=== PATIENT | male | born 1980 | race Caucasian/White ===

== ENCOUNTER 2018-10-14 17:00 | Emergency (ER) | payer OTHER ==
--- NOTE | 2018-10-14 17:14 | ED Physician Documentation ---
PD HPI ABD PAIN - Stated complaint Stated Complaint: NAUSEA/AB PX - Chief complaint Chief Complaint: Abd Pain - History obtained from History obtained from: Patient - History of Present Illness Timing - onset: How many days ago (5-6) Timing - duration: Days (5-6) Timing - details: Gradual onset, Still present, Waxing and waning Quality: Cramping, Aching, Pain Location: Periumbilical, RLQ Radiation: No: Lower back, Right flank Improved by: BM Worsened by: Eating Associated symptoms: Nausea, Diarrhea (once or twice daily but is watery and odorous.). No: Fever, Vomiting, Constipation, Hematochezia, Weight loss Similar symptoms before: Has not had sx before Recently seen: Not recently seen Review of Systems Constitutional: denies: Fever, Chills, Myalgias Nose: denies: Rhinorrhea / runny nose, Congestion Throat: denies: Sore throat Respiratory: denies: Cough GI: reports: Abdominal Pain, Nausea, Diarrhea. denies: Abdominal Swelling, Vomiting, Constipation, Bloody / black stool : denies: Dysuria, Frequency Skin: denies: Rash, Lesions PD PAST MEDICAL HISTORY - Past Medical History Cardiovascular: None Respiratory: None Neuro: None Endocrine/Autoimmune: None GI: None - Present Medications Home Medications: Ambulatory Orders Medication Instructions Recorded Confirmed Naproxen 500 mg PO BID #20 tablet 10/14/18 Ondansetron Odt [Zofran] 4 mg TL Q6H PRN #10 tablet 10/14/18 Tramadol HCl 50 mg PO Q6H PRN #15 tablet 10/14/18 - Allergies Allergies/Adverse Reactions: Allergies Allergy/AdvReac Type Severity Reaction Status Date / Time Penicillins Allergy Unknown Verified 10/14/18 17:07 PD ED PE NORMAL - Vitals Vital signs reviewed: Yes - General General: Alert and oriented X 3, No acute distress, Well developed/nourished - HEENT HEENT: Pharynx benign - Neck Neck: Supple, no meningeal sign, No adenopathy, No JVD - Cardiac Cardiac: RRR, No murmur - Respiratory Respiratory: Clear bilaterally - Abdomen Abdomen: Normal bowel sounds, Soft, Non distended, No organomegaly, Other (tender RLQ and lower mid abd with local guarding. No percussion nor rebound tenderness. No hernias noted. No rash nor sores. ) - Back Back: No CVA TTP - Derm Derm: Normal color, Warm and dry - Neuro Neuro: Alert and oriented X 3, No motor deficit, Normal speech Results - Vitals Vitals: Vital Signs - 24 hr 10/14/18 10/14/18 17:06 19:15 Temperature 36.8 C Heart Rate 67 88 Respiratory 18 16 Rate Blood Pressure 129/82 H 118/78 O2 Saturation 97 99 Oxygen O2 Source Room air - Labs Labs: Laboratory Tests 10/14/18 10/14/18 10/14/18 17:47 17:47 19:10 WBC 8.8 RBC 4.60 L Hgb 14.9 Hct 42.9 MCV 93.3 MCH 32.5 H MCHC 34.8 RDW 12.2 Plt Count 331 MPV 8.0 Neut # (Auto) 5.2 Lymph # (Auto) 2.2 [place] # (Auto) 0.7 Eos # (Auto) 0.7 Baso # (Auto) 0.0 Absolute Nucleated RBC 0.00 Nucleated RBC % 0.0 Sodium 137 Potassium 3.9 Chloride 102 Carbon Dioxide 24 Anion Gap 11.0 BUN 10 Creatinine 1.0 Estimated GFR (MDRD) 85 L Glucose 93 Calcium 9.3 Total Bilirubin 0.7 AST 19 ALT 19 Alkaline Phosphatase 58 Total Protein 7.3 Albumin 4.2 Globulin 3.1 Albumin/Globulin Ratio 1.4 Lipase 28 Urine Color YELLOW Urine Clarity CLEAR Urine pH 6.0 Ur Specific [place] <=1.005 Urine Protein NEGATIVE Urine Glucose (UA) NEGATIVE Urine Ketones TRACE Urine Occult Blood NEGATIVE Urine Nitrite NEGATIVE Urine Bilirubin NEGATIVE Urine Urobilinogen 0.2 (NORMAL) Ur Leukocyte Esterase NEGATIVE Ur Microscopic Review NOT INDICATED Urine Culture Comments NOT INDICATED - Rads (name of study) abd/pelvic CT Radiology: Prelim report reviewed (appendix is normal. No focal abnormality. ), See rad report PD MEDICAL DECISION MAKING - ED course Complexity details: reviewed results (CT without focal finding. Consider stool studies to eval for bacterial enteritis. ), considered differential (exam and history concerning for diverticulitis or subacute appendicitis, consider bacterial enteritis as well. Less sounding acute viral GE. ), d/w patient Departure - Departure Disposition: 01 Home, Self Care Clinical Impression: Abdominal pain Qualifiers: Abdominal location: right lower quadrant Qualified Code(s): R10.31 - Right lower quadrant pain Diarrhea Qualifiers: Diarrhea type: presumed infectious Qualified Code(s): R19.7 - Diarrhea, unspecified Condition: Stable Record reviewed to determine appropriate education?: Yes Instructions: ED Abdominal Pain Unkn Cause Male Follow-Up: KIMI RAM [Primary Care Provider] - Prescriptions: Naproxen 500 mg PO BID #20 tablet Ondansetron Odt [Zofran] 4 mg TL Q6H PRN #10 tablet PRN Reason: Nausea / Vomiting Tramadol HCl 50 mg PO Q6H PRN #15 tablet PRN Reason: Pain Comments: Your CT scan does not show any focal area of infection. Your appendix is normal. There is no signs of diverticulitis. I presume your pain is from irritation of the colon associated with the diarrhea. Bring a sample of the diarrhea to your primary care tomorrow and have them culture and study it for pa rticular infections. Meanwhile you can use anti-inflammatory and pain medicine as needed. Stay well-hydrated and drink lots of fluids. Discharge Date/Time: 10/14/18 20:38
[2018-10-14] MEDS ORDERED: SODIUM CHLORIDE 0.9% 1,000 ML IV ONE ×2 (17:32→17:33)
[2018-10-14] MEDS ORDERED: FAMOTIDINE 20 MG/2 ML VIAL IVP STA (17:32)
[2018-10-14] MEDS ORDERED: ACETAMINOPHEN 1,000 MG/100 ML 100 ML IV STA (17:32)
[2018-10-14] MEDS ORDERED: ONDANSETRON 4 MG/2 ML VIAL IVP STA (17:32)
[2018-10-14] MEDS ORDERED: IOVERSOL 320 100 ML VIAL IVP ONE ×2 (17:47→19:49)
[2018-10-14 18:00] LABS: BASOPHILS % (AUTO) 0.5 %; EOSINOPHILS # (AUTO) 0.7 10^3/uL (0.0-0.7); EOSINOPHILS % (AUTO) 8.2 %; HGB - HEMOGLOBIN 14.9 g/dL (14.0-18.0); LYMPHOCYTES # (AUTO) 2.2 10^3/uL (1.5-3.5); LYMPHOCYTES % (AUTO) 24.4 %; MEAN CORPUSCULAR HEMOGLOBIN 32.5 pg (27.0-31.0); MEAN CORPUSCULAR HGB CONC 34.8 g/dL (32.0-36.0); MEAN CORPUSCULAR VOLUME 93.3 fL (80.0-94.0); MONOCYTES # (AUTO) 0.7 10^3/uL (0.0-1.0); MONOCYTES % (AUTO) 8.2 %; NEUTROPHILS # (AUTO) 5.2 10^3/uL (1.5-6.6); NEUTROPHILS % (AUTO) 58.7 %; PLT - PLATELET COUNT 331 10^3/uL (130-450); RED CELL DISTRIBUTION WIDTH 12.2 % (12.0-15.0); WHITE BLOOD COUNT 8.8 x10^3/uL (4.8-10.8)
[2018-10-14 18:15] LABS: ALBUMIN 4.2 g/dL (3.2-5.5); ALBUMIN/GLOBULIN RATIO 1.4 (1.0-2.2); BILIRUBIN,TOTAL 0.7 mg/dL (0.2-1.0); CALCIUM 9.3 mg/dL (8.5-10.3); TOTAL PROTEIN 7.3 g/dL (6.7-8.2)
[2018-10-14 19:19] VITALS: BP 118/78
[2018-10-14 19:21] LABS: BILIRUBIN,URINE NEGATIVE (NEGATIVE); GLUCOSE, URINE (UA) NEGATIVE (NEGATIVE); KETONES,URINE (UA) TRACE mg/dL (NEGATIVE); LEUKOCYTE ESTERASE, URINE NEGATIVE (NEGATIVE); NITRITE,URINE NEGATIVE (NEGATIVE); OCCULT BLOOD,URINE NEGATIVE (NEGATIVE); PROTEIN,URINE NEGATIVE (NEGATIVE); UROBILINOGEN,URINE 0.2 (NORMAL) E.U./dL (NORMAL)
[2018-10-14 19:22] LABS: CLARITY,URINE CLEAR (CLEAR)
--- NOTE | 2018-10-14 19:56 | CT Report ---
Reason: RLQ abd pain for 5 days Procedure Date: 10/14/2018 Accession Number: [id number] / [id number] Procedure: CT - Abdomen/Pelvis W CPT Code: FULL RESULT: EXAM: CT ABDOMEN AND PELVIS WITH CONTRAST. EXAM DATE: 10/14/2018 07:02 PM. CLINICAL HISTORY: Right lower quadrant abdominal pain for 5 days. COMPARISONS: None. TECHNIQUE: Routine helical CT imaging was performed through the abdomen and pelvis. IV contrast: CE. Enteric contrast: No. Reconstructions: Coronal and sagittal. In accordance with CT protocol optimization, one or more of the following dose reduction techniques were utilized for this exam: automated exposure control, adjustment of mA and/or KV based on patient size, or use of iterative reconstructive technique. FINDINGS: Lung Bases: Unremarkable. Liver: Normal. No masses. Gallbladder/Bile Ducts: Unremarkable. Spleen: Normal. Pancreas: Normal. Adrenal Glands: Normal. Kidneys: Normal. No masses or hydronephrosis. Peritoneal Cavity/Bowel: Normal. No free fluid, free air or adenopathy. No masses or acute inflammatory process. The appendix is well visualized and normal. Pelvic Organs: Normal. The bladder and visualized pelvic organs are within normal limits. Vasculature: No aneurysms or other significant abnormality. Bones: No significant abnormality. Other: None. IMPRESSION: Normal abdomen and pelvis CT. [facility]
[2018-10-14] MEDS ORDERED: HYDROcod/ACET 5/325 Prepack 4 PO STA (20:20)
[2018-10-14] MEDS ORDERED: KETOROLAC 30 MG/ML VIAL IVP STA (20:20)
== END 2018-10-14 20:38 | disposition home or self-care (01) ==
LOC: ED 17:00
DX: R10.31 Right lower quadrant pain (principal); R19.7 Diarrhea, unspecified; R10.33 Periumbilical pain
CPT/HCPCS: 36415; 74177; 80053; 81003; 83690; 85025; 96361; 96365; 99283; J0131; Q9967; 81001; 87086

== ENCOUNTER 2019-05-23 17:31 | Outpatient (CLI) | payer OTHER ==
--- NOTE | 2019-05-25 04:34 | MRI Report ---
Reason: CERVICAL ROOT DISORDERS Procedure Date: 05/23/2019 Accession Number: [id number] / [id number] Procedure: MRI - Cervical Spine W/O CPT Code: Final Report FULL RESULT: EXAM: MRI CERVICAL SPINE WITHOUT CONTRAST EXAM DATE: 05/23/2019 06:31 PM. CLINICAL HISTORY: CERVICAL ROOT DISORDERS. Chronic neck pain with radiculopathy. Distal tingling/paresthesias reproducible on exam with Spurling maneuver. COMPARISONS: None. TECHNIQUE: Multiplanar, multisequence T1-weighted and fluid-sensitive sequences of the cervical spine without contrast. Other: None. FINDINGS: Neurologic Structures: The visualized posterior fossa structures are unremarkable. No signal abnormality in the visualized spinal cord. No cord compression. Alignment: No scoliosis or spondylolisthesis. Bone Marrow: No gross fractures or bone lesions. No marrow edema. An incidental 9 mm hemangioma is noted in the right side of the C3 vertebral body. Interspace Levels/Facets: C1-C2: Unremarkable. C2-C3: Unremarkable. C3-C4: There is a mild annular disk bulge slightly effacing the ventral subarachnoid space. No canal or foraminal stenosis. C4-C5: A mild annular bulge slightly effaces the ventral thecal sac. No significant canal or foraminal stenosis. C5-C6: There is a minimal annular disk bulge. No canal or foraminal stenosis. C6-C7: There is a mild annular bulge. A superimposed left foraminal disk osteophyte complex causes moderate left foraminal stenosis. This could potentially impinge the exiting left C7 nerve root. Right-sided uncinate hypertrophy causes mild to moderate right foraminal narrowing. No central canal stenosis. C7-T1: Unremarkable. Musculature: Normal. No edema or fatty atrophy. Other: The paravertebral and prevertebral soft tissues are normal. IMPRESSION: 1. At C6-C7, there is a mild generalized disk bulge. A superimposed left foraminal disk osteophyte complex causes moderate left foraminal stenosis. This could potentially impinge the exiting left C7 nerve root. Please correlate clinically. Right-sided uncinate hypertrophy causes mild to moderate right foraminal narrowing. 2. At C3-C4, C4-C5, and C5-C6 there is mild annular disk bulging. There is no focal disk herniation. There is no significant canal or foraminal stenosis at these levels. 3. The visualized cord is normal in signal. There is no cord compression. There no significant central canal stenosis at any level. [facility]
== END 2019-05-23 17:32 | disposition home or self-care (01) ==
LOC: DI 17:31
PROVIDERS: ATTEND Student in an Organized Health Care Education/Training Program
DX: M47.812 Spondylosis without myelopathy or radiculopathy, cervical region (principal); M50.81 Other cervical disc disorders, high cervical region
CPT/HCPCS: 72141